=== PATIENT | male | born 1975 | race Caucasian/White ===

== ENCOUNTER 2024-06-12 18:32 | Emergency (ER) | payer OTHER ==
[~2024-06-12] VITALS: Ht 177.8 cm; Wt 90.7 kg
[2024-06-12] MEDS ORDERED: NS 1,000 ML IV ONE ×2 (18:36→18:46)
[2024-06-12 18:56] LABS: Base Excess Venous -3.7 mmol/L; PCO2 Venous 47.1 mmHg (38-42); pH Blood Venous 7.29 (7.34-7.37)
[2024-06-12 18:58] LABS: BASOPHILS ABSOLUTE AUTO 0.02 K/mm3 (0.00-0.23); BASOPHILS PERCENT AUTO 0 % (0-2); EOSINOPHILS ABSOLUTE AUTO 0.06 K/mm3 (0.00-0.68); EOSINOPHILS PERCENT AUTO 1 % (0-6); Hematocrit 38.6 % (37.0-53.0); Hemoglobin 13.5 g/dL (13.5-17.5); IMMATURE GRAN ABSOLUTE AUTO 0.02 K/mm3 (0.00-0.10); IMMATURE GRAN PERCENT AUTO 0 % (0-1); LYMPHOCYTES ABSOLUTE AUTO 1.77 K/mm3 (0.84-5.20); LYMPHOCYTES PERCENT AUTO 31 % (21-46); MONOCYTES ABSOLUTE AUTO 0.52 K/mm3 (0.16-1.47); MONOCYTES PERCENT AUTO 9 % (4-13); Mean Corpuscular HGB 31.8 pg (26.0-34.0); Mean Corpuscular Volume 91 fL (80-100); Mean Platelet Volume 8.5 fL (9.1-12.4); NEUTROPHILS ABSOLUTE AUTO 3.26 K/mm3 (1.96-9.15); NEUTROPHILS PERCENT AUTO 58 % (41-73); Platelet Count 192 K/mm3 (150-400); RDW Coefficient Variation 13.2 % (11.7-14.2); RDW Standard Deviation 43.2 fL (35.1-46.3); Red Blood Cell Count 4.24 M/mm3 (4.30-5.90); White Blood Cell Count 5.65 K/mm3 (4.00-11.30)
[2024-06-12 19:21] LABS: Albumin, Blood 3.8 g/dL (3.4-5.0); Albumin/Globulin Ratio 1.4 (0.8-1.8); Bilirubin, Total 0.5 mg/dL (0.1-1.0); Bun/Creatinine Ratio 8.1 (12.0-20.0); Calcium, Blood 9.2 mg/dL (8.5-10.1); Creatinine, Blood 1.49 mg/dL (0.60-1.20); Globulin, Blood 2.8 g/dL (2.2-4.0); Potassium, Blood 4.3 mmol/L (3.5-5.5); Total Protein, Blood 6.6 g/dL (6.4-8.2)
[2024-06-12 19:28] LABS: Ethanol (Alcohol), Blood, Med 183 mg/dL
[2024-06-12 19:29] LABS: Acetaminophen, Random <2.0 ug/mL (10.0-30.0); Salicylate 2.8 mg/dL (2.8-20.0)
[2024-06-12 19:40] LABS: D-Dimer, Quantitative <0.19 mg/L FEU (0.00-0.52); International Normalized Ratio 1.02; Prothrombin Time Results 10.9 Sec (9.7-11.5)
[2024-06-12 19:50] LABS: Magnesium, Blood 2.1 mg/dL (1.6-2.4); Phosphorus, Blood 3.2 mg/dL (2.5-4.9)
[2024-06-12] MEDS ORDERED: NS 1,000 ML IV SCH (20:20)
[2024-06-12 22:17] LABS: Source, Urine Clean Catch
[2024-06-12 22:31] LABS: Bilirubin, Urine Neg (Neg); Blood, Urine 1+ (Neg); Glucose Qualitative, Urine Neg (Neg); Ketones, Urine Neg (Neg); Leukocyte Esterase, Urine Neg (Neg); Nitrite, Urine Neg (Neg); Protein, Urine 2+ (Neg); Urobilinogen, Urine NORM (Normal)
[2024-06-12 22:40] LABS: Appearance, Urine Clear (Clear); Color, Urine Pale Yellow (P-Yellow)
[2024-06-12] MEDS ORDERED: CAFFEINE PO (22:40)
[2024-06-12] MEDS ORDERED: MULVITA PO (22:40)
[2024-06-12] MEDS ORDERED: ASA PO (22:40)
[2024-06-12] MEDS ORDERED: TYLENOL PO (22:40)
[2024-06-12 22:41] LABS: Amorphous Light (0-Heavy); Bacteria Rare /hpf; Spermatozoa Few /hpf; Squamous Epithelial Cells Not Seen /hpf (Few); White Blood Cells, Urine 0-2 /hpf (0-5)
[2024-06-12] MEDS ORDERED: LATUDA40 M1 PO (22:41)
[2024-06-12] MEDS ORDERED: Vyvanse50 MG PO (22:42)
[2024-06-12] MEDS ORDERED: ZESTRIL40 M1 PO (22:42)
[2024-06-12] MEDS ORDERED: MIRTAZAPINE7.5 M1 PO (22:42)
[2024-06-12] MEDS ORDERED: HYDPAM50 PO (22:43)
[2024-06-12] MEDS ORDERED: ASPI325 PO (22:43)
[2024-06-12] MEDS ORDERED: METO100 PO (22:43)
[2024-06-12] MEDS ORDERED: NARCAN4 M1 INH (22:44)
[2024-06-12] MEDS ORDERED: IRON PO (22:44)
[2024-06-12] MEDS ORDERED: PRAZ2 PO (22:45)
[2024-06-12 22:52] LABS: U Amphetamine Screen DETECTED; U Barbituate Screen Not Detected; U Benzodiazapine Screen Not Detected; U Buprenorphine Screen Not Detected; U Cannabinoids Screen Not Detected; U Cocaine Screen Not Detected; U Methadone Screen Not Detected; U Methamphetamine Screen DETECTED; U Opiates Screen Not Detected; U Oxycodone Screen Not Detected; U Phencyclidine Screen Not Detected
[2024-06-13] MEDS ORDERED: Acetaminophen 500 MG Tab PO ONE (00:40)
== END 2024-06-13 00:49 | disposition home or self-care (01) ==
LOC: ER 18:32
PROVIDERS: Student in an Organized Health Care Education/Training Program
DX: R41.82 Altered mental status, unspecified (principal); F10.129 Alcohol abuse with intoxication, unspecified; F15.10 Other stimulant abuse, uncomplicated; I10 Essential (primary) hypertension
CPT/HCPCS: 36415; 70450; 71045; 72125; 80053; 80320; 81001; 82803; 83605; 83735; 84100; 84484; 85025; 85379; 85610; 85730; 87040; 96360; 99285-25; A9270; G0480; J7030

== ENCOUNTER 2024-07-05 18:35 | Emergency (ER) | payer OTHER ==
[~2024-07-05] VITALS: Ht 177.8 cm; Wt 90.7 kg
[~2024-07-05 18:35] MED LIST: ASA PO; ASPI325 PO; CAFFEINE PO; HYDPAM50 PO; IRON PO; LATUDA40 M1 PO; METO100 PO; MIRTAZAPINE7.5 M1 PO; MULVITA PO; NARCAN4 M1 INH; PRAZ2 PO; TYLENOL PO; Vyvanse50 MG PO; ZESTRIL40 M1 PO
== END 2024-07-05 19:54 | disposition home or self-care (01) ==
LOC: ER 18:35
DX: S93.401A Sprain of unspecified ligament of right ankle, initial encounter (principal); I10 Essential (primary) hypertension; W05.1XXA Fall from non-moving nonmotorized scooter, initial encounter; Z79.82 Long term (current) use of aspirin; Z79.899 Other long term (current) drug therapy
CPT/HCPCS: 73610; 99284-25

== ENCOUNTER 2024-08-03 00:07 | Emergency (ER) | payer OTHER ==
[~2024-08-03] VITALS: Ht 177.8 cm; Wt 90.7 kg
[2024-08-03] MEDS ORDERED: Acetaminophen 500 MG Tab PO ONE (00:25)
[2024-08-03] MEDS ORDERED: Dexamethasone Sod Phos 10 MG/ML 1ML VIAL IM ONE (00:25)
[2024-08-03] MEDS ORDERED: Prochlorperazine Edisylate 10 mg Vial IM ONE (00:25)
[2024-08-03] MEDS ORDERED: DiphenhydrAMINE HCl 50 MG/ML 1ML Vial IM ONE (00:25)
[2024-08-03] MEDS ORDERED: Ketorolac Tromethamine 15mg Vial IM ONE (00:30)
[2024-08-03] MEDS ORDERED: Trimethoprim/Sulfamethoxazole DS Tab PO ONE (00:45)
[2024-08-03] MEDS ORDERED: NS 500 ML IV SCH (00:50)
[2024-08-03] MEDS ORDERED: CEPH500 PO (01:56)
== END 2024-08-03 02:05 | disposition home or self-care (01) ==
LOC: ER 00:07
DX: R51.9 Headache, unspecified (principal); I10 Essential (primary) hypertension; Z79.82 Long term (current) use of aspirin; Z79.899 Other long term (current) drug therapy
CPT/HCPCS: 96360; 96372-59; 99283-25; A9270; J0780; J1100; J1200; J1885; J7030

== ENCOUNTER 2024-09-27 17:24 | Emergency (ER) | payer OTHER ==
[~2024-09-27] VITALS: Ht 177.8 cm; Wt 86.2 kg
[~2024-09-27 17:24] MED LIST changes: +CEPH500 PO
== END 2024-09-27 17:45 | disposition home or self-care (01) ==
LOC: ER 17:24
DX: F41.9 Anxiety disorder, unspecified (principal); I10 Essential (primary) hypertension; G25.81 Restless legs syndrome; F31.9 Bipolar disorder, unspecified; F42.9 Obsessive-compulsive disorder, unspecified; F90.9 Attention-deficit hyperactivity disorder, unspecified type; Z79.899 Other long term (current) drug therapy
CPT/HCPCS: 99283